=== PATIENT | female | born 1940 | race Caucasian/White ===

== ENCOUNTER → 2017-07-29 08:26 | Outpatient (CLI) | payer MEDICARE, SELFPAY ==
--- NOTE | 2017-07-29 09:30 | US_ITS ---
US abdomen limited COMPARISON: None HISTORY: History of nonalcoholic steatohepatitis TECHNIQUE: Targeted ultrasound right upper quadrant FINDINGS: The pancreas is normal in size and shows mild diffuse fatty infiltration. The liver is normal size and show scattered areas of increased and somewhat coarsened appearing echogenicity consistent with fatty infiltration. There has been a previous cholecystectomy. The common bile duct is normal caliber. The right kidney measures 8.4 x 4.0 x 5.3 cm and shows a somewhat echogenic pelvis suggesting pelvic fibrolipomatosis. There is mild uniform cortical thinning of the kidney but there is no hydronephrosis. IMPRESSION: Mild to moderate diffuse fatty liver, mild uniform cortical thinning right kidney not unexpected at the patient's age.
== END ==
PROVIDERS: PCP Family Medicine; Visit Provider Nurse Practitioner Acute Care
DX: R94.5 Abnormal results of liver function studies (principal)
CPT/HCPCS: 76705

== ENCOUNTER → 2017-09-02 10:25 | Outpatient (POV) | payer MEDICARE, SELFPAY | PROVIDERS: Visit Provider Nurse Practitioner Acute Care | DX: Z00.00 Encounter for general adult medical examination without abnormal findings (principal) ==